=== PATIENT | female | born 1950 | race Caucasian/White ===

== ENCOUNTER 2017-10-26 05:49 | Emergency (ER) | payer OTHER, MEDICARE ==
[2017-10-26 06:28] LABS: #Lymphocytes 0.4 thou/uL (1.20-3.40); #Monocytes 0.1 thou/uL (0.11-0.59); #Neutrophils 4.1 thou/uL (1.40-6.50); %Basophils 0.6 % (0.0-1.0); %Eosinophils 0.4 % (0.0-10.0); %Lymphocytes 8.5 % (21.0-51.0); %Monocytes 2.5 % (0.0-10.0); Hemoglobin 15.4 g/dL (12.0-16.0); Mean Corpuscular HGB CONC 34.4 g/dL (32.0-36.0); Mean Corpuscular Hemoglobin 32.8 pg (27.0-31.0); Mean Corpuscular Volume 95.3 fl (81.0-99.0); Mean Platelet Volume 7.9 fL (7.4-10.4); Platelet Count 177 thou/uL (130-400); RBC Distribution Width 11.8 % (11.5-14.5); Red Blood Cell (RBC) Count 4.69 mill/uL (4.20-5.40); White Blood Cell (WBC) Count 4.7 thou/uL (4.8-10.8)
[2017-10-26 06:37] LABS: ALT (SGPT) 25 U/L (8-55); AST (SGOT) 27 U/L (5-34); Albumin 4.3 g/dL (3.4-4.8); Alkaline Phosphatase 73 U/L (40-150); Anion Gap 15 mmol/L (10-20); BUN (Urea Nitrogen) 9 mg/dL (9.8-20.1); Bilirubin, Total 0.8 mg/dL (0.2-1.2); Calc. Creatinine Clearance 0 mL/min (70-130); Carbon Dioxide 20 mmol/L (23-31); Chloride 101 mmol/L (98-107); Estimated GFR-MDRD 86; Globulin 2.7 g/dL (2.4-3.5); Glucose 115 mg/dL (80-115); Lipase 34 U/L (8-78); Potassium 3.6 mmol/L (3.5-5.1); Sodium 132 mmol/L (136-145)
[2017-10-26 06:42] LABS: CKMB 0.8 ng/mL (0-6.6); Troponin I 0.011 ng/mL (< 0.028)
[2017-10-26] MEDS ORDERED: Mag-Al 1200 mg/1200 mg/30 ML UDCUP ONE (07:10)
[2017-10-26] MEDS ORDERED: Lidocaine Viscous Sol 2% 15 ml UD Cup ONE (07:10)
--- NOTE | 2017-10-26 07:29 | RAD ---
PORTABLE CHEST 1 VIEW: HISTORY: A 67-year-old female with a history of dyspnea and shortness of breath. FINDINGS: Monitor leads overlie the chest. Prominent dextroscoliosis of the thoracic vertebral column. Heart size is normal. No confluent pneumonia, overt edema, or pleural effusion. IMPRESSION: No acute intrathoracic disease. Thoracic spine dextroscoliosis. Atherosclerosis of the aorta with e ctasia. POS: [facility]
[2017-10-26 07:51] LABS: Bilirubin Negative (Negative); Blood, Urine Trace (Negative); Clarity CLEAR (Clear); Glucose, Urine (Dipstick) Negative (Negative); Leukocyte Negative (Negative); Nitrite Negative (Negative); Protein, Urine (Dipstick) Negative (Neg-Trace); Urobilinogen 0.2 mg/dL (0.2-1.0)
[2017-10-26 07:52] LABS: Bacteria/HPF 1+ HPF (None Seen); Hyaline Casts/LPF 4-6 HYALINE CAST LPF (0-3 Hyaline); Pathc Cast-AUWi Flag 1.59 (0-2.49); RBC/HPF 0-3 HPF (0-3); Squamous Epithelial 0-3 HPF (0-3); WBC/HPF 0-3 HPF (0-3)
[2017-10-26] MEDS ORDERED: Famotidine/PF 20 mg/2ml Vial SLOW IVP ONE (09:30)
[2017-10-26 09:42] LABS: Troponin I Less than 0.010 ng/mL (< 0.028)
== END 2017-10-26 10:26 | disposition home or self-care (01) ==
LOC: ERS 05:49
DX: K21.9 Gastro-esophageal reflux disease without esophagitis (principal); R07.9 Chest pain, unspecified; I10 Essential (primary) hypertension; Z79.82 Long term (current) use of aspirin; Z79.899 Other long term (current) drug therapy
CPT/HCPCS: 36415; 71045; 80053; 81003; 81015; 82553; 83690; 84484; 85025; 93005; 94760; S0028

== ENCOUNTER 2017-11-13 08:04 | Outpatient (CLI) | payer OTHER | END 2017-11-13 08:05 | disposition home or self-care (01) | LOC: BICMAMMO 08:04 | PROVIDERS: ATTEND Family Medicine | DX: Z12.31 Encounter for screening mammogram for malignant neoplasm of breast (principal) | CPT/HCPCS: 77063; 77067 ==

== ENCOUNTER 2018-03-03 10:26 | Inpatient (IN) | payer OTHER, MEDICARE ==
[2018-03-03 11:11] LABS: #Eosinphils 0.1 thou/uL (0.0-0.7); #Lymphocytes 1.4 thou/uL (1.20-3.40); #Monocytes 0.3 thou/uL (0.11-0.59); #Neutrophils 4.4 thou/uL (1.40-6.50); %Basophils 0.4 % (0.0-1.0); %Eosinophils 0.9 % (0.0-10.0); %Lymphocytes 22.7 % (21.0-51.0); %Monocytes 5.4 % (0.0-10.0); %Neutrophils 70.7 % (42.0-75.0); Mean Corpuscular HGB CONC 32.9 g/dL (32.0-36.0); Mean Corpuscular Hemoglobin 31.8 pg (27.0-31.0); Mean Corpuscular Volume 96.8 fL (78.0-98.0); Platelet Count 211 thou/uL (130-400); RBC Distribution Width 12.1 % (11.5-14.5); Red Blood Cell (RBC) Count 4.09 mill/uL (4.20-5.40); White Blood Cell (WBC) Count 6.2 thou/uL (4.8-10.8)
[2018-03-03] MEDS ORDERED: Ondansetron HCl/PF 4 MG/2 ML Vial ONE ×2 (11:13→14:34)
[2018-03-03] MEDS ORDERED: Lorazepam 2 MG/ML VIAL ONE (11:13)
[2018-03-03] MEDS ORDERED: Adacel (T-DAP) 0.5 ML VIAL ONE (11:13)
[2018-03-03] MEDS ORDERED: Fentanyl 100 MCG/2 ML VIAL ONE ×4 (11:13→16:17)
--- NOTE | 2018-03-03 11:14 | RAD ---
RIGHT HIP 2 VIEWS: HISTORY: Trauma. Tripped over a dog. Pain. COMPARISON: None. FINDINGS: Intratrochanteric fracture of the right femur with displacement of the lesser tuberosity. Mild varus angulation. IMPRESSION: Displaced angulated acute intertrochanteric fracture of the right femur. POS: [facility]
--- NOTE | 2018-03-03 11:15 | RAD ---
PELVIS 1 VIEW: HISTORY: Trauma. COMPARISON: None. FINDINGS: Intratrochanteric fracture right femur with varus angulation and medial displacement of the lesser tr ochanter approximately 1 shaft width. IMPRESSION: Varus angulated comminuted right intratrochanteric fracture. POS: [facility]
[2018-03-03 11:17] LABS: INR-International Normal Ratio 0.9; Prothrombin Time 12.3 SEC (12.0-14.7)
[2018-03-03 11:18] LABS: PTT 26.5 SEC (22.9-36.1)
--- NOTE | 2018-03-03 11:19 | RAD ---
CHEST 1 VIEW: HISTORY: Preop. COMPARISON: Radiograph 10/26/2017. FINDINGS: Lungs are clear. No pneumothorax or effusion. Cardiac silhouette and mediastinal contours are withi n normal limits. Moderate dextroscoliosis. IMPRESSION: No acute intrathoracic abnormality. POS: [facility]
[2018-03-03 11:31] LABS: ALT (SGPT) 19 U/L (8-55); AST (SGOT) 20 U/L (5-34); Albumin 4.1 g/dL (3.4-4.8); Alkaline Phosphatase 59 U/L (40-150); Anion Gap 11 mmol/L (10-20); BUN (Urea Nitrogen) 6 mg/dL (9.8-20.1); Bilirubin, Total 0.4 mg/dL (0.2-1.2); Calc. Creatinine Clearance 0 mL/min (70-130); Calcium 9.1 mg/dL (7.8-10.44); Carbon Dioxide 25 mmol/L (23-31); Chloride 104 mmol/L (98-107); Estimated GFR-MDRD 85; Globulin 2.4 g/dL (2.4-3.5); Glucose 107 mg/dL (80-115); Potassium 3.5 mmol/L (3.5-5.1); Protein, Total 6.5 g/dL (6.0-8.3); Sodium 136 mmol/L (136-145)
--- NOTE | 2018-03-03 12:50 | HP ---
DATE OF ADMISSION: 03/03/2018 REQUESTING PHYSICIAN: Dr. Vasquez. ATTENDING PHYSICIAN: Dr. Pepe. CONSULTATIONS: Orthopedics, Dr. Nelson. HISTORY OF PRESENT ILLNESS: The patient is a 67-year-old woman who was hit by her dog knoc fransisca her to the ground landing on her right hip on the concrete outside. She denies loss of consciou sness. The family was able to notify EMS, which brought her to the emergency department where she un derwent evaluation and examination and was noted to have a right proximal femur fracture, at which ti me we were asked to evaluate the patient for admission and obtain orthopedic consultation. ALLERGIES: EPINEPHRINE. Patient states that it cause her to have a racing heart and causes anxiety. Morphine, the patient states that it turns her skin red. CURRENT MEDICATIONS: Losartan 25 mg daily, aspirin 81 mg daily, Prilosec OTC 20 mg twice a day. PAST MEDICAL HISTORY: Gastroesophageal reflux disease, hypertension. PAST SURGICAL HISTORY: Right knee replacement and ORIF of left humerus. SOCIAL HISTORY: The patient quit smoking greater than 10 years ago. Occasional alcohol use, no drug use. She lives independently at home with family nearby. REVIEW OF SYSTEMS: A 10-point review of systems is negative unless otherwise stated. PHYSICAL EXAMINATION: VITAL SIGNS: Blood pressure 170/78, heart rate 69, respirations 16, oxygen saturation is 99% on room air, temperature is 98.6. GENERAL: The patient is resting comfortably in bed in the emergency department. She is awake, alert , and oriented x3. [place] coma scale is 15. HEENT: Head is normocephalic, atraumatic. Eyes: Extraocular motion intact. PERRLA bilaterally. E ars are atraumatic without discharge. Nose is atraumatic without discharge. Oropharynx is clear. NECK: Nontender. Trachea is midline. No JVD. CHEST: Clear to auscultation with good inspiratory and expiratory effort. HEART: Regular rate and rhythm. ABDOMEN: Soft, flat, nontender with active bowel sounds. Pelvis is stable with tender to palpation to the right hip consistent with her fracture. EXTREMITIES: Neurovascularly intact x4. BACK: By report is nontender and atraumatic. LABORATORY DATA: White blood cell count 6.2, hemoglobin 13.0, hematocrit 39.6, platelets 211. Sodiu m 136, potassium 3.5, chloride 104, CO2 25, BUN 6, creatinine 0.69, glucose 107. LFTs are unremarkab le. PTT 27, PT 12, INR 0.9. RADIOGRAPHIC FINDINGS: AP chest x-ray shows no acute intrathoracic abnormality. AP pelvis shows a v arus angulated comminuted right intertrochanteric femur fracture. Views of the right hip again showe d displaced angulated acute trochanteric fracture of the right femur. ASSESSMENT AND PLAN: 1. Status post ground level fall. 2. Right proximal femur fracture. 3. Acute pain secondary to above. 4. History of hypertension. Plan will be to admit the patient to the surgical floor. She will have pain management, pulmonary to ilet, gastritis, and mechanical VTE prophylaxis. The patient will remain n.p.o. at this time. After discussion with Dr. Nelson, it is likely that the patient will be taken to the operating room priscila riley for her procedure. The evaluation, examination, laboratory and radiographic findings will be disc ussed with Dr. Pepe after this dictation.
[2018-03-03] MEDS ORDERED: Dextrose 5% in Water 1,000 ML IV PRN (12:55)
[2018-03-03] MEDS ORDERED: hydrALAZINE 20 MG/ML VIAL SLOW IVP PRN (12:55)
[2018-03-03] MEDS ORDERED: Dextrose 50% Abboject 50 ML SYRINGE SLOW IVP PRN (12:55)
[2018-03-03] MEDS ORDERED: Ondansetron HCl/PF 4 MG/2 ML Vial IVP PRN ×2 (12:55→13:54)
[2018-03-03] MEDS ORDERED: Morphine 4 MG/ML Carpuject IVP PRN (12:55)
[2018-03-03] MEDS ORDERED: Ondansetron ODT 4 MG TAB PO PRN (12:55)
[2018-03-03] MEDS ORDERED: CEFAZOLIN/Water 2 GM/20 ML SYRINGE SLOW IVP SCH (13:30)
[2018-03-03 13:34] VITALS: BMI 23.9
[2018-03-03] MEDS ORDERED: CEFAZOLIN/Water 2 GM/20 ML SYRINGE ONE (13:45)
[2018-03-03] MEDS ORDERED: PROPOFOL 200 MG/20 ML VIAL ONE (14:34)
[2018-03-03] MEDS ORDERED: PHENYLEPHRINE-NS 100 MCG/ML 10 ML SYRINGE ONE (14:34)
[2018-03-03] MEDS ORDERED: Dexamethasone 20 MG/5 ML VIAL ONE (14:34)
[2018-03-03] MEDS ORDERED: Lidocaine 1% PF 5 ML VIAL ONE (14:34)
[2018-03-03] MEDS ORDERED: Glycopyrrolate 0.2 MG/ML 5 ML SYRINGE ONE (14:34)
[2018-03-03] MEDS ORDERED: ePHEDrine/0.9% NaCl/PF SYRINGE 50 mg/10 ml ONE (14:34)
[2018-03-03] MEDS ORDERED: Fentanyl 100 MCG/2 ML VIAL SLOW IVP PRN (14:36)
[2018-03-03] MEDS: Ketorolac Tromethamine 30 MG/ML VIAL IVP SCH ×2 (15:32→20:13)
[2018-03-03] MEDS: Acetaminophen 1,000 MG in Premix Bag 1 BAG IVPB SCH ×2 (15:32→20:13)
[2018-03-03] MEDS: Sodium Chloride 0.9% 1,000 ML IV SCH ×2 (15:32→23:19)
--- NOTE | 2018-03-03 16:10 | RAD ---
RIGHT HIP FOUR INTRAOPERATIVE IMAGES: 03/03/2018 HISTORY: Fracture, status post ORIF. FINDINGS: There is a comminuted right intertrochanteric fracture, treated with an intramedullary jovan with a dunog l traversing the femoral neck and a distal interlocking screw. IMPRESSION: Open reduction and internal fixation, as above. POS: [facility]
[2018-03-03] MEDS: Fentanyl 100 MCG/2 ML VIAL SLOW IVP PRN ×2 (17:08→23:13)
--- NOTE | 2018-03-03 17:43 | CON ---
DATE OF CONSULTATION: 03/03/2018 CHIEF COMPLAINT: Right hip pain. HISTORY OF PRESENT ILLNESS: Ms. Magdaleno is a 67-year-old female who fell this morning. She tripped over her dog. She landed on the driveway. She was unable to bear weight. She had immediate pain. Her leg was shortened. She was taken to the Emergency Department by EMS. She has been found to have a subtrochanteric femur fracture. She has been admitted to the hospital now. She is comfortable at rest. She has been cleared for surgery by the General Surgery Trauma Service. No other injuries. She does have a history of a remote left humerus fracture and she has had a right total knee arthroplasty. PAST MEDICAL HISTORY: GERD and hypertension. PAST SURGICAL HISTORY: Right total knee arthroplasty, ORIF of left humerus. SOCIAL HISTORY: The patient denies tobacco, alcohol, or drug use. She lives independently. No cane or walking device needed. IMAGES: X-rays of the pelvis and hip demonstrate a displaced left comminuted subtrochanteric femur fracture. PHYSICAL EXAMINATION: VITAL SIGNS: Stable. She is normotensive. She is afebrile. HEENT: Normocephalic, atraumatic. RESPIRATORY: The patient is breathing comfortably. CV: pulse is palpable and regular MUSCULOSKELETAL: The right lower extremity is shortened and externally rotated. She has intact skin. She is able to move the foot and ankle distally. palpable dorsalis pedis pulse IMPRESSION: Right subtrochanteric femur fracture. PLAN: At this point, the patient will need surgical intervention. We will plan for intramedullary nail fixation of the right femur. She will go to surgery today. She should remain n.p.o. She will have adequate pain control. She will be on deep venous thrombosis prophylaxis and antibiotic prophylaxis. [facility]ENTER[facility]ho[facility]
--- NOTE | 2018-03-03 20:08 | OP ---
DATE OF OPERATION: 03/03/2018 OPERATION: Right femur intramedullary nail. PREOPERATIVE DIAGNOSIS: Right subtrochanteric femur fracture. POSTOPERATIVE DIAGNOSIS: Right subtrochanteric femur fracture. COMPLICATIONS: None. ESTIMATED BLOOD LOSS: 100 mL SURGEON: Niranjan Nelson M.D. ANESTHESIA: General. IMPLANTS: Synthes trochanteric nail size 9 mm x 400 mm. INDICATIONS: Ms. Magdaleno is a 67-year-old female who fell. She fractured her right subtrochanteric fem ur. She was indicated for intramedullary nail fixation to restore anatomic alignment and promote hea ling. Risks have been reviewed in detail. She has elected to proceed with the operation. DESCRIPTION OF PROCEDURE: Ms. Magdaleno was identified in the preoperative holding area. Her correct ext remity was marked. She was carried to the operating room. She was positioned supine. General anest hesia was induced. The right lower extremity was placed in traction. We reduced the fracture using a reduction maneuver in traction. X-rays were obtained. At this point, we prepped the right lower e xtremity. We then proceeded with making a small incision proximal to the trochanter. We inserted a guidewire. We then over reamed the guidewire. Next, we placed our ball-tip guidewire down to the kn ee. We checked position on intraoperative x-ray. We then over reamed from an 8.5 up to 10. We then placed a 9 mm x 400 mm nail. At this point, a helical blade was placed proximally followed by dista l cross lock screw. We took final x-ray images. We then irrigated all wounds and closed appropriate ly in layers. The patient was taken to the recovery room in good condition.
[2018-03-03] MEDS: Famotidine 20 MG TAB PO SCH (20:14)
[2018-03-03] MEDS: CEFAZOLIN/Water 2 GM/20 ML SYRINGE SLOW IVP SCH (22:45)
[2018-03-04] MEDS: Acetaminophen 1,000 MG in Premix Bag 1 BAG IVPB SCH (01:49)
[2018-03-04] MEDS: Ketorolac Tromethamine 30 MG/ML VIAL IVP SCH (01:50)
[2018-03-04] MEDS: CEFAZOLIN/Water 2 GM/20 ML SYRINGE SLOW IVP SCH (05:18)
[2018-03-04 05:59] LABS: #Lymphocytes 0.6 thou/uL (1.20-3.40); #Monocytes 0.3 thou/uL (0.11-0.59); #Neutrophils 7.2 thou/uL (1.40-6.50); %Eosinophils 0.1 % (0.0-10.0); %Lymphocytes 7.2 % (21.0-51.0); %Monocytes 3.5 % (0.0-10.0); %Neutrophils 89.2 % (42.0-75.0); Hemoglobin 10.8 g/dL (12.0-16.0); Mean Corpuscular HGB CONC 33.1 g/dL (32.0-36.0); Mean Corpuscular Hemoglobin 32.3 pg (27.0-31.0); Mean Corpuscular Volume 97.5 fL (78.0-98.0); Mean Platelet Volume 10.6 fL (7.4-10.4); Platelet Count 153 thou/uL (130-400); RBC Distribution Width 12.1 % (11.5-14.5); Red Blood Cell (RBC) Count 3.33 mill/uL (4.20-5.40)
[2018-03-04 06:08] LABS: Anion Gap 13 mmol/L (10-20); BUN (Urea Nitrogen) 6 mg/dL (9.8-20.1); Calc. Creatinine Clearance 78 mL/min (70-130); Calcium 8.5 mg/dL (7.8-10.44); Carbon Dioxide 24 mmol/L (23-31); Chloride 105 mmol/L (98-107); Estimated GFR-MDRD 78; Glucose 141 mg/dL (80-115); Potassium 4.2 mmol/L (3.5-5.1); Sodium 138 mmol/L (136-145)
[2018-03-04] MEDS: Acetaminophen 500 MG TAB PO SCH ×3 (06:40→17:46)
[2018-03-04] MEDS ORDERED: Ibuprofen 800 MG TAB PO SCH (07:00)
[2018-03-04] MEDS: Sodium Chloride 0.9% 1,000 ML IV SCH ×2 (08:05→15:04)
[2018-03-04] MEDS: Famotidine 20 MG TAB PO SCH ×2 (08:06→21:25)
[2018-03-04] MEDS: Senokot S 8.6-50 MG TAB PO SCH ×2 (08:06→21:25)
[2018-03-04] MEDS: Polyethylene Glycol 3350 17 GM Packet PO SCH (08:06)
[2018-03-04] MEDS: Ibuprofen 800 MG TAB PO SCH ×2 (15:05→21:40)
--- NOTE | 2018-03-04 22:45 | PRG ---
DATE OF SERVICE: 03/04/2018 Mita Magdaleno is a 67-year-old male, status post fall with an ORIF of right hip. Rehab consult has been submitted. The patient is without complaints today. White count 8, hemoglobin 10.8. Basic metabol ic profile normal. The patient is status post 03/03/2018, Dr. Nelson ORIF of right subtrochanteri c femur fracture. The patient without new complaints. OBJECTIVE: VITAL SIGNS: 98.2 degrees, 88, 141/66. LUNGS: Clear to auscultation. CARDIAC: Regular rate and rhythm without murmur or gallop. ABDOMEN: Soft, nontender. Plan is to bowel routine. Increase diet. Physical therapy rehabilitation consult.
[2018-03-05] MEDS: Sodium Chloride 0.9% 1,000 ML IV SCH (00:07)
[2018-03-05] MEDS: Acetaminophen 500 MG TAB PO SCH ×5 (00:08→23:38)
[2018-03-05] MEDS: Ibuprofen 800 MG TAB PO SCH ×3 (05:41→20:41)
[2018-03-05] MEDS: Polyethylene Glycol 3350 17 GM Packet PO SCH (09:20)
[2018-03-05] MEDS: Senokot S 8.6-50 MG TAB PO SCH ×2 (09:20→20:41)
[2018-03-05] MEDS: Losartan 25 MG TAB PO SCH (09:30)
[2018-03-05] MEDS: Fish Oil 1,000 MG CAP PO SCH (09:31)
[2018-03-05] MEDS: Calcium Carbonate 500 MG TAB PO SCH (09:31)
--- NOTE | 2018-03-05 15:47 | PRG-2 ---
DATE OF SERVICE: 03/05/2018 SUBJECTIVE: The patient is a 67-year-old female with a past medical history of hypertension, who is status post a mechanical fall during which she sustained a right hip fracture. She is postoperative day #2 status post open reduction and internal fixation of her fracture. There were no acute events overnight. The patient reports having had a bowel movement this morning. States her pain is well controlled on her current pain regimen. She had no complaints at the time of exam. OBJECTIVE: VITAL SIGNS: Temperature 97.8 degrees Fahrenheit, pulse 79, respirations 18, O2 sat 99% on room air, blood pressure 112/67. GENERAL: The patient is a well-appearing female sitting upright in a chair in no acute distress. HEENT: Normocephalic, atraumatic. CARDIOVASCULAR: Regular rate and rhythm, no murmurs. RESPIRATORY: Lungs clear to auscultation bilaterally. Good inspiratory and expiratory effort. ABDOMEN: Soft, nondistended, nontender. Normal bowel sounds noted. EXTREMITIES: Good range of motion in all extremities. No cyanosis, edema, or neuropathy distal to the site of injury. NEUROLOGIC: Patient is alert and oriented x3. No focal deficits noted. LABORATORY DATA: There is no new laboratory data for review. RADIOLOGIC DATA: There is no new radiologic data for review. ASSESSMENT AND PLAN: 1. Status post mechanical fall. 2. Right proximal femur fracture, status post repair. 3. Acute traumatic pain. 4. History of hypertension. PLAN: We will continue scheduled p.o. pain regimen and bowel regimen. Will continue having the patient work with physical therapy daily during her hospitalization. Will remove her Waldron catheter today. The patient voided over 2 liters overnight. Will resume home blood pressure medications today as the patient's blood pressure has been slightly elevated since her admission. Awaiting approval from the patient's insurance to allow her to be admitted directly to [facility] upon discharge. Anticipate discharge before the end of the week. Patient was seen by and the plan was discussed with the trauma attending, Dr. Sidney Pepe. TEE
[2018-03-06] MEDS: Ibuprofen 800 MG TAB PO SCH ×3 (04:20→21:23)
[2018-03-06] MEDS: Acetaminophen 500 MG TAB PO SCH ×4 (05:53→23:06)
[2018-03-06] MEDS ORDERED: traMADol HCl 50 MG TAB PO PRN (08:57)
[2018-03-06] MEDS: Polyethylene Glycol 3350 17 GM Packet PO SCH (09:02)
[2018-03-06] MEDS: Fish Oil 1,000 MG CAP PO SCH (09:03)
[2018-03-06] MEDS: Losartan 25 MG TAB PO SCH (09:04)
[2018-03-06] MEDS: Calcium Carbonate 500 MG TAB PO SCH (09:04)
[2018-03-06] MEDS: Senokot S 8.6-50 MG TAB PO SCH ×2 (09:05→21:22)
[2018-03-06] MEDS: traMADol HCl 50 MG TAB PO SCH ×3 (12:38→21:23)
[2018-03-06] MEDS: Cyclobenzaprine 10 MG TAB PO PRN ×2 (14:46→23:06)
--- NOTE | 2018-03-06 14:49 | PRG ---
DATE OF SERVICE: 03/06/2018 HISTORY OF PRESENT ILLNESS: Ms. Magdaleno is a 67-year-old woman who fell from ground level position onto her right hip. She is post-injury day #3 today. She suffered a subtrochanteric right femur fractur e. The patient is postoperative day #3 status post right femur intramedullary nail. She reports bet ter pink. Pain control today. She is tolerating oral intake. She has not had any bowel movement ye t. She has adequate urinary output. OBJECTIVE: VITAL SIGNS: Today includes blood pressure 135/76, pulse 70, respiratory rate is 16, temperature 97. 9 degrees Fahrenheit, oxygen saturation 100% on room air. HEENT: Pupils equal, round, and reactive to light and accommodation. NECK: She has no jugular venous distention noted. HEART: Reveals regular rate and rhythm, no murmurs or gallops auscultated. LUNGS: Clear to auscultation bilaterally. Her breathing is regular and unlabored. ABDOMEN: Soft, nontender, nondistended. EXTREMITIES: With 2+ radial and pedal pulses bilaterally. No ankle edema is present. NEUROLOGIC: Reveals no focal deficits present. IMPRESSION: 1. Status post right femur intramedullary nail. 2. Resolving acute post-traumatic pain syndrome. PLAN: 1. Increase activity per physical and occupational therapy. 2. We will optimize her pain control. 3. We will change the aspirin to 81 mg p.o. b.i.d. to augment the nonpharmacological VTE prophylaxis . The patient has been accepted for inpatient rehabilitation, pending insurance authorization.
[2018-03-07] MEDS: traMADol HCl 50 MG TAB PO SCH ×4 (03:40→21:00)
[2018-03-07] MEDS: Acetaminophen 500 MG TAB PO SCH ×4 (06:15→23:25)
[2018-03-07] MEDS: Ibuprofen 800 MG TAB PO SCH ×3 (06:16→21:18)
[2018-03-07] MEDS: Calcium Carbonate 500 MG TAB PO SCH (08:50)
[2018-03-07] MEDS: Senokot S 8.6-50 MG TAB PO SCH ×2 (08:50→21:19)
[2018-03-07] MEDS: Polyethylene Glycol 3350 17 GM Packet PO SCH (08:50)
[2018-03-07] MEDS: Fish Oil 1,000 MG CAP PO SCH (08:50)
[2018-03-07] MEDS: Losartan 25 MG TAB PO SCH (08:51)
--- NOTE | 2018-03-07 14:16 | PRG-2 ---
DATE OF SERVICE: 03/07/2018 SUBJECTIVE: The patient is a 67-year-old lady with a past medical history significant for hypertension who is postop day #4 status post a right hip fracture repair that she sustained from a mechanical fall at home. The patient states that her pain is well controlled with her current pain regimen. She endorses having a bowel movement this morning and is tolerating a p.o. diet. She has been working daily with physical therapy and has walked approximately 300 feet almost every session that she has had with physical therapy. The patient has no complaints on exam this morning. PHYSICAL EXAMINATION: VITAL SIGNS: Temperature 97.9 degrees Fahrenheit, pulse 82, respirations 18, O2 sats 100% on room air, blood pressure 153/81. GENERAL: The patient is sitting up in a chair, comfortable, in no acute distress. HEENT: Normocephalic, atraumatic. CARDIOVASCULAR: Regular rate and rhythm. No murmurs. RESPIRATORY: Lungs clear to auscultation bilaterally with good inspiratory and expiratory effort. ABDOMEN: Soft, nontender, nondistended. EXTREMITIES: The patient has full range of motion in all extremities. Neurovascularly intact x4. NEUROLOGIC: The patient is alert and oriented x3. No focal deficits noted. LABORATORY DATA: There is no new laboratory data for review. RADIOLOGIC DATA: There is no new radiologic data for review. ASSESSMENT: 1. Status post mechanical fall. 2. Right femur fracture, day #4 status post repair. 3. Acute post-traumatic pain, resolving. 4. History of hypertension. PLAN: Will increase her activity with physical and occupational therapy as tolerated by the patient. Will continue current bowel and pain regimen as patient has no complaints. Will continue VTE prophylaxis with aspirin 81 mg b.i.d. Patient was denied for inpatient rehabilitation by her insurance. We will arrange a [id number] conversation to take place today between the trauma PA, Hamilton Toribio and the patient's insurance company's forestry crew chief. We will advocate that the patient be accepted to inpatient rehabilitation to ensure a speedy recovery to get her back to her baseline. Anticipate discharge before the end of the week. The plan was discussed with the trauma attending, Dr. Napoleon Obando. TEE
[2018-03-07] MEDS: Cyclobenzaprine 10 MG TAB PO PRN (21:23)
[2018-03-08] MEDS: Acetaminophen 500 MG TAB PO SCH ×2 (05:30→12:30)
[2018-03-08] MEDS: Ibuprofen 800 MG TAB PO SCH ×2 (05:30→14:23)
[2018-03-08] MEDS: Calcium Carbonate 500 MG TAB PO SCH (08:04)
[2018-03-08] MEDS: Losartan 25 MG TAB PO SCH (08:04)
[2018-03-08] MEDS: Fish Oil 1,000 MG CAP PO SCH (08:04)
[2018-03-08] MEDS: traMADol HCl 50 MG TAB PO SCH ×2 (11:46→14:57)
[2018-03-08] MEDS: Polyethylene Glycol 3350 17 GM Packet PO SCH (11:49)
[2018-03-08] MEDS: Senokot S 8.6-50 MG TAB PO SCH (11:49)
[2018-03-08 15:45] VITALS: BP 138/88; TEMP 97.8
== END 2018-03-08 16:45 | disposition home or self-care (01) | DRG 482 ==
LOC: ERS 10:26 → SURG B 13:08
PROVIDERS: ADMIT Surgery; ATTEND Surgery
PROC: 0QS604Z Reposition Right Upper Femur with Internal Fixation Device, Open Approach (ICD-10-PCS; principal; 2018-03-03)
DX: S72.21XA Displaced subtrochanteric fracture of right femur, initial encounter for closed fracture (principal); I10 Essential (primary) hypertension; Z96.651 Presence of right artificial knee joint; W54.1XXA Struck by dog, initial encounter; Z88.8 Allergy status to other drugs, medicaments and biological substances; Z88.5 Allergy status to narcotic agent; Z79.899 Other long term (current) drug therapy; Z79.82 Long term (current) use of aspirin; K21.9 Gastro-esophageal reflux disease without esophagitis; Z87.891 Personal history of nicotine dependence
CPT/HCPCS: 36415; 71045; 72170; 76001; 80048; 80053; 85025; 85610; 85730; 90471; 90662; 90715; 93005; 96361; 96374; 96375; C1713; C1769; G0008; G0390; G8978-GP-CL; G8979-GP-CI; G8987-GO-CJ; G8988-GO-CI; J0131; J1100; J1885; J2001; J2060; J2405; J2704; J3010

== ENCOUNTER 2018-07-18 08:10 | Outpatient (CLI) | payer OTHER, MEDICARE ==
--- NOTE | 2018-07-18 09:18 | BD ---
DEXA BONE DENSITY STUDY: Date: 07/18/18 COMPARISON: 03/11/09 HISTORY: 67-year-old postmenopausal female for screening for osteoporosis. FINDINGS: Lumbar Spine: BMD (g/cm2) L1 1.247 T-Score: 2.3 L2 1.138 T-Score: 1.0 L3 1.411 T-Score: 3.0 L4 1.508 T-Score: 4.1 L1-L4 1.346 T-Score: 2.7 Left Femoral Neck: 0.627 T-Score: -2.0 Total Femur: 0.887 T-Score: -0.4 IMPRESSION: Osteopenia. This patient has an approximately 5x increased risk for fracture when compared with young patients with normal bone mineral density. The bone mineral density measurement for the hip is proba viky more accurate as there are significant degenerative changes in the spine which may falsely elevat e the measurements in the spine. POS: [facility]
== END 2018-07-18 08:11 | disposition home or self-care (01) ==
LOC: BICMAMMO 08:10
PROVIDERS: ATTEND Family Medicine
DX: M85.852 Other specified disorders of bone density and structure, left thigh (principal); M47.816 Spondylosis without myelopathy or radiculopathy, lumbar region
CPT/HCPCS: 77080

== ENCOUNTER 2020-07-09 14:46 | Outpatient (CLI) | payer OTHER | END 2020-07-09 14:47 | disposition home or self-care (01) | LOC: BICMAMMO 14:46 | PROVIDERS: ATTEND Family Medicine | DX: M85.852 Other specified disorders of bone density and structure, left thigh (principal) | CPT/HCPCS: 77080 ==